=== PATIENT | male | born 1970 | race Hispanic/Latino ===

== ENCOUNTER 2024-03-29 08:02 | Emergency (ER) | payer BC, SELFPAY ==
[2024-03-29 08:12] VITALS: BP 146/87
--- NOTE | 2024-03-29 08:32 | ED.GENMED ---
History of Present Illness
General
Chief Complaint: Abdominal Pain
Source: patient
Exam Limitations: none
Time Seen by Provider: 03/29/24 08:19
Nursing documentation reviewed up to this point in time: agreed with
History of Present Illness
History of Present Illness:
53-year-old male presents emergency room complaining of right lower quadrant abdominal pain for the past few days. He states he had a temperature of 100 yesterday. He has had some diarrhea. He notes a decrease in appetite.
Past History
Past History
ED Past Medical History: None
ED Past Surgical History: Other (Mohs surgery on right side of face)
Social History
Tobacco: Non-smoker
Alcohol: Occasional
Drug: None
Employment: Employed
Review of Systems
Review of Systems
Allergies reviewed?: Yes
All Other Systems: Not applicable
Constitutional: Reports fever
EENT: Reports no symptoms
Respiratory: Reports no symptoms
Cardiac: Reports no symptoms
ABD/GI: Reports abdominal pain, nausea and diarrhea
: Reports no symptoms
Musculoskeletal: Reports no symptoms
Skin: Reports no symptoms
Neurological: Reports no symptoms
Endocrine: Reports no symptoms
Hematologic/Lymphatic: Reports no symptoms
Psychiatric: Reports no symptoms
Phy Exam
Physical Exam
Physical Exam:
Physical Exam
General: Afebrile
Neck: supple. no meningeal signs. normal posterior pharynx
Heart: s1/s2 regular rate and rhythm, no murmur. equal radial
pulses.
HEENT: Pupils equal round reactive to light, EOMI
Lungs: no acute respiratory distress. clear bilaterally
Abdomen: normal bowel sounds. Right lower quadrant tenderness, no rebound or guarding. no CVAT
Neuro: alert and oriented. no focal neurological deficits
Skin: no rash
Psychiatric: well kept. interactive and cooperative
Extremities: no edema. good distal pulses
Course
Orders/Labs/Results
Orders:
Orders
03/29/24 08:31
CT Abd/pel W Iv And Oral Contr Urgent
Comment:
Reason For Exam: RLQ abd pain worsening over 3-4 days, fever
Iohexol [Omnipaque] See Protocol PO NOW STA
03/29/24 08:44
Complete Blood Count/With Diff Urgent
Comprehensive Metabolic Panel Urgent
Lipase Urgent
03/29/24 09:40
Urinalysis Reflex To Culture Urgent
Date Specimen was Collected: 03/29/24
Time Specimen was Collected: 09:37
Abnormal Lab Results
03/29/24
08:44
BUN 26 H mg/dl
(9-20)
Glucose 103 H mg/dl
(70-99)
Calcium 10.4 H mg/dl
(8.4-10.2)
Total Bilirubin 1.4 H mg/dl
(0.2-1.3)
03/29/24 08:44
03/29/24 08:44
Vital Signs
Initial and Last Documented VS:
Initial Vital Signs
Temp Pulse Resp BP Pulse Ox
97.7 F 66 16 146/87 98
03/29/24 08:12 03/29/24 08:12 03/29/24 08:12 03/29/24 08:12 03/29/24 08:12
Last Documented Vital Signs
Temp Pulse Resp BP Pulse Ox
97.7 F 66 16 150/101 100
03/29/24 08:12 03/29/24 08:12 03/29/24 08:12 03/29/24 11:06 03/29/24 09:30
MDM/Problems Addressed
Differential Diagnosis Includes:
Appendicitis, diverticulitis, colitis
MDM/Problems Addressed:
53-year-old male with right lower quadrant abdominal pain, diarrhea and decreased appetite. No signs of appendicitis on CT scan. Normal labs. Patient stable for discharge. Suspect viral cause. Return precautions given.
*Radiology
Radiology exam reviewed: radiology read reviewed (CT abdomen pelvis no acute findings)
*Pulse Oximetry
Patient hypoxic: no
*Critical Care Note
Total Time (30-74mins, 75-104mins- exclusive of procedures): Not Applicable
Patient Management
Social determinants of health affecting care: Living situation
Escalation/DeEscalation of care consider admission/obs:
Admission not indicated
ED Attending Note
-
Portions of this chart may have been created with voice recognition software.� Occasional wrong word or��sound alike� substitutions may have occurred due to the inherent limitations of voice recognition software.
Discharge Plan
Departure
Patient Disposition: Home (Routine Discharge)
Date of Disposition: 03/29/24
Time of Disposition: :
Patient with high blood pressure during this ER visit?: Yes
Condition: Good
Discharge Problem:
Abdominal pain, Diarrhea
Instructions: Diarrhea in teens and adults, Abdominal Pain, BLOOD PRESSURE
Referrals:
Chico Valladares PA-C [Family Provider] - Call in 1-3 days for appt
Interventions
Interventions:
*Risk Screen - Suicide Last Done: 03/29/24 08:12
*General Assessment Last Done: 03/29/24 08:12
*Neglect/Abuse Screening Last Done: 03/29/24 08:12
ED- Fall Risk Assessment Last Done: 03/29/24 08:40
*ED COVID-19 Vaccine History Last Done: 03/29/24 08:40
NA-Nyzqle-Epakfsohse Assessment Last Done: 03/29/24 08:40
Discharge Date and Time
Print Language: AMHARIC
[2024-03-29 08:40] VITALS: BMI 24.5
[2024-03-29] MEDS: OMNIPAQUE 50 ML PO (08:40)
[2024-03-29 08:46] VITALS: BP 135/88
[2024-03-29 08:52] LABS: % Basophils 0.8 % (0-2); % Eosinophils 1.8 % (0-6); % Immature Granulocytes 0.2 % (0-0.5); % Lymphocytes 30.4 % (20.5-51.1); % Neutrophils 59.8 % (42.2-75.2); Absolute Basophils 0.1 10^3/uL (0-0.2); Absolute Eosinophils 0.1 10^3/uL (0-0.7); Absolute Lymphocytes 1.8 10^3/uL (1.2-3.4); Absolute Monocytes 0.4 10^3/uL (0.1-0.6); Absolute Neutrophils 3.6 10^3/uL (1.4-6.5); Hematocrit 43.8 % (39.0-52.0); Hemoglobin 15.1 g/dL (13.0-18.0); Mean Corp Hgb Conc. 34.5 g/dL (33.0-37.0); Mean Corpuscular Hgb 29.8 pg (27.0-31.0); Mean Corpuscular Volume 86.6 fL (80.0-94.0); Mean Platelet Volume 9.8 fL (7.4-10.4); Nucleated Red Blood Cells % 0 % (-); Platelet Count 290 10^3/uL (130-400); Red Blood Cell Count 5.06 10^6/uL (4.70-6.10); Red Cell Dist. Width 11.6 % (11.5-14.5)
[2024-03-29 09:00] VITALS: BP 140/90
[2024-03-29 09:31] LABS: ALT (SGPT) 33 U/L (0-50); AST (SGOT) 34 U/L (17-59); Albumin 4.7 g/dl (3.5-5.0); Alkaline Phosphatase 53 U/L (38-126); Blood Urea Nitrogen 26 mg/dl (9-20); Calcium 10.4 mg/dl (8.4-10.2); Carbon Dioxide 30 mmol/L (22-30); Chloride 101 mmol/L (98-107); Estimated Creatinine Clearance 68 ml/min; Glucose 103 mg/dl (70-99); Lipase 156 U/L (23-300); Potassium 4.5 mmol/L (3.5-5.1); Sodium 142 mmol/L (135-145); Total Bilirubin 1.4 mg/dl (0.2-1.3); Total Protein 7.7 g/dl (6.3-8.2); eGFR > 60.00
[2024-03-29 09:49] LABS: Urine Albumin Negative (Neg - Trace); Urine Bilirubin Negative (Negative); Urine Character Clear (Clear); Urine Color Yellow; Urine Glucose Negative (Negative); Urine Ketone Negative (Negative); Urine Leukocyte Negative (Negative); Urine Nitrite Negative (Negative); Urine Occult Blood Negative (Negative); Urine Urobilinogen Negative (Neg - 1+)
[2024-03-29 11:06] VITALS: BP 150/101
[2024-03-29 11:49] VITALS: BP 144/94
== END 2024-03-29 12:26 | disposition home or self-care (01) ==
LOC: EMR 08:02
PROVIDERS: EMERGENCY PHYSICIAN Emergency Medicine; FAMILY PHYSICIAN Physician Assistant Medical
DX: R10.31 Right lower quadrant pain (principal); R19.7 Diarrhea, unspecified; R11.0 Nausea; R50.9 Fever, unspecified; R03.0 Elevated blood-pressure reading, without diagnosis of hypertension; Z85.828 Personal history of other malignant neoplasm of skin; Z88.1 Allergy status to other antibiotic agents
CPT/HCPCS: 99284; 74177; 80053; 81003; 83690; 85025; Q9967

== ENCOUNTER 2024-05-30 06:24 | Day surgery (SDC) | payer BC, SELFPAY | END 2024-05-30 13:04 | disposition home or self-care (01) | LOC: GI 06:24 | PROVIDERS: ATTENDING PHYSICIAN Internal Medicine | DX: Z12.11 Encounter for screening for malignant neoplasm of colon (principal); D12.0 Benign neoplasm of cecum | CPT/HCPCS: 45385; 45380; 88305 ==